=== PATIENT | female | born 1960 | race Caucasian/White ===

== ENCOUNTER → 2018-07-28 08:22 | Outpatient (CLI) | payer MEDICARE, BC ==
--- NOTE | 2018-07-30 09:13 | EC ---
PATIENT:MARIA T CARRILLO DATE OF SERVICE: 07/28/18 SEX: F MEDICAL RECORD: [id number] DATE OF : 58 LOCATION:DFORMERLY [facility] AGE OF PATIENT: 58 ADMISSION DATE: 07/28/18 REFERRING PHYSICIAN: INTERPRETING PHYSICIAN: RAINA BEAN MD ECHOCARDIOGRAM REPORT ECHO CHARGES 4 ECHO COMPLETE Date: 07/28/18 CLINICAL DIAGNOSIS: CARDIOMYOPATHY HISTORY, CAD/HTN ECHOCARDIOGRAPHIC MEASUREMENTS (adult normal given) AC root (d.<3.7cm) 3.5 cm LV Septum d (<1.2 cm> 1.5 cm Valve Excursion 1.4 cm LV Septum (systole) 1.7 cm Left Atria (s.<4.0cm> 3.9 cm LVPW d(<1.2cm) 1.4 cm RV (d.<2.3cm) 3.5 cm LVPW (sytole) 1.6 cm LV diastole(<5.6CM) 4.8 cm MV E-F(>70mm/sec) cm LV systole 3.9 cm LVOT Diameter 1.6 cm MV exc.(>10mm) 1.6 cm Est.ejection fraction (50-75%) % DOPPLER: LVIT cm/sec A 73.0 cm/sec E 71.0 cm/sec LA cm/sec RVSP 29 mmHg LVOT 90 cm/sec AOP1/2T m/s Asc. Ao 131 cm/sec RVOT 66 cm/sec RA cm/sec PA 108 cm/sec AV Gradient Peak 6.87 mmHg AV Mean 3.64 mmHg AV Area 1.3 cm MV Gradient Peak 3.90 mmHg MV Mean 1.75 mmHg MV Area cm COMMENTS: Special Education Educational Assistant: 2 FRANK CESPEDES Supervisor Functional Testing: 3 Dr. Serna TAPE# PACS Pericardial Effusion N DATE OF SERVICE: Adequate 2D echo, color flow, spectral Doppler, and M-Mode LVH is present. LV internal dimensions are normal. Wall motion is normal. EF is greater than or equal to 55%. Aortic valve is tricuspid. No evidence of stenosis by Doppler interrogation. Left atrium is normal. Mitral valve shows no prolapse. Trace MR. Right-sided chambers grossly normal. Trace TR. TRANSINT:[id number] Voice Confirmation ID: [id number] DOCUMENT ID: [id number] ECHOCARDIOGRAM REPORT [id number] LORENA,RAINA ROLAND MD at 0913 CC: [id number] DICTATION DATE: 07/29/18 1014 SYSTEM ARCHIVE ANALYST: 07/29/18 1227 DEP CLI 07/28/18 [facility] [address] [place] [address]
== END | disposition home or self-care (01) ==
LOC: D.HCCARDIO 08:22
PROVIDERS: ATTEND Internal Medicine Interventional Cardiology
DX: I42.9 Cardiomyopathy, unspecified (principal)

== ENCOUNTER 2019-09-19 07:34 | Outpatient (CLI) | payer MEDICARE, BC ==
[~2019-09-19] VITALS: Ht 152.4 cm; Wt 61.7 kg
--- NOTE | ~2019-09-19 | HEMODYNAMI ---
PATIENT:MARIA T CARRILLO MEDICAL RECORD: [id number] : 58 LOCATION:D.CAT ADMISSION DATE: 09/19/19 Generatedon:09/19/201910:13 Patient name: MARIA T CARRILLO Patient #: [id number] SSN: [id number] : 1960 Date of study: 09/19/2019 Page: Of Hemodynamic Procedure Report Patient Data Patient Demographics Procedure consent was obtained First Name: MARIA T Gender: Female Last Name: LORENA : 1960 Middle Initial: D Age: 59 year(s) Patient #: [id number] Race: SSN: [id number] Additional ID: [id number] Contact details Address: [address] [place] [address] State: [place] City: [place] Zip code: [address] Admission Admission Data Admission Date: 09/19/2019 Admission Time: 7:34 Arrival Date: 09/19/2019 Arrival Time: 9:30 Insurance Payor: Medicare [facility] #: [id number] Height (in.): 59.84 BSA: 1.57 (m2) Height (cm.): 152 BMI: 26.4 (kg/m2) Weight (lbs.): 134.48 Weight (kg.): 61 Lab Results Lab Result Date: 09/19/2019 Lab Result Time: 0:00 Biochemistry Name Units Result Min Max BUN mg/dl 16 --(---*)-- 7 18 Creatinine mg/dl 0.8 --(-*--)-- 0.6 1.3 CBC Name Units Result Min Max Hemoglobin g/dl 12.6 -*(----)-- 13.5 17.5 Procedure Procedure Types Cath Procedure Diagnostic Procedure C [facility] w/Coronaries Sedation Charges Moderate Sedation up to 15 minutes Peripheral Cath Diagnostic Procedure Stone Chimney Mason Peripheral Procedures AFRO (Diagnostic) Procedure Description Procedure Date Procedure Date: 09/19/2019 Procedure Start Time: 10:00 Procedure End Time: 10:10 Procedure Staff Name Function Chaim Pagan MD Performing Physician Tiny Quesada RT Monitor Beryl Chamorro RT Scrub [facility] RN Nurse Procedure Data Cath Procedure Fluoroscopy Diagnostic fluoroscopy Total fluoroscopy Time: 1.6 time: 1.6 min min Diagnostic fluoroscopy Total fluoroscopy dose: 296 dose: 296 mGy mGy Contrast Material Contrast Material Type Amount (ml) Isovue 300 113 Entry Location Entry Primary Successful Side Size Upsize Upsize Entry Closure Succes sful Closure Location (Fr) 1 (Fr) 2 (Fr) Remarks Device Remarks Femoral Right 5 Fr Exoseal artery Estimated blood loss: 5 ml Diagnostic catheters Device Type Used For End Catheter Placement MULTIPACK JL 4.0 5Fr Left Coronary catheter Angiography MULTIPACK 3DRC 5Fr Right Coronary catheter Angiography MULTIPACK Pigtail 5 Fr LV Angiography catheter Procedure Complications No complications Procedure Medications Medication Administration Route Dosage Oxygen etCO2 Nasal cannula 2 l/min Lidocaine 2% added to field 20 Heparin Flush Bag added to field 2 bags (1000units/500ml NS) 0.9% NaCl I.V. 100 ml/hr Versed I.V. 1 mg Fentanyl I.V. 50 mcg Versed I.V. 1 mg Fentanyl I.V. 50 mcg Hemodynamics Rest BSA: 1.57 (m2) HGB: 12.6 (g/dl) O2 Consumption: Estimated: 141.83 (ml/min) O2 Co nsumption indexed: Estimated:90.34 (ml/min/m) Heart Rate: 58 (bpm) Pressure Samples Time Site Value (mmHg) Purpose Heart Use Rate(bpm) 10:05 LV 110/10,11 Snapshot 65 Gradients Valve Time Site Site Mean SEP/DFP Peak To Heart Use 1 2 (mmHg) (sec/min) Peak Rate (mmHg) (bpm) Aortic 10:06 LV AO 73 Snapshots Pre Cath Intra NCS Post Cath Vital Signs Time Heart Resp SPO2 etCO2 NIBP (mmHg) Rhythm Pain Sedation Rate (ipm) (%) (mmHg) Status Level (bpm) 9:44:23 56 11 100 26.1 130/77(100) NSR 0 (11) 10(A) , No pain 9:48:41 56 18 100 17.9 125/70(98) NSR 0 (11) 10(A) , No pain 9:52:59 59 11 98 22.4 112/57(80) NSR 0 (11) 10(A) , No pain 9:57:17 62 15 95 0 101/59(75) NSR 0 (11) 10(A) , No pain 10:01:31 63 20 99 26.8 99/58(69) NSR 0 (11) 10(A) , No pain 10:05:41 65 15 100 33.6 107/67(79) NSR 0 (11) 10(A) , No pain 10:09:51 77 19 100 16.4 106/73(80) NSR 0 (11) 10(A) , No pain Medications Time Medication Route Dose Verified Delivered Reason Notes Eff ectiveness by by 9:46:25 Oxygen etCO2 2 Chaim Dennyie used for Nasal l/min [facility] RN procedure cannula 9:46:32 Lidocaine 2% added 20ml Chaim Chaim for local to vial [facility] anesthetic field MD GARG 9:46:39 Heparin Flush added 2 Chaim Chaim used for Bag to bags [facility] procedure (1000units/500ml field MD GARG NS) 9:46:48 0.9% NaCl I.V. 100 Chaim Baldwinie Per ml/hr [facility] RN physician 9:56:27 Versed I.V. 1 mg Chaim [address]o for [facility] RN sedation 9:56:32 Fentanyl I.V. 50 Chaim [address]ie for mcg [facility] RN sedation 10:04:36 Versed I.V. 1 mg [address]o for [facility] RN sedation 10:04:40 Fentanyl I.V. 50 Chaim Lindo for mcg [facility] RN sedation Procedure Log Time Note 9:19:01 Informed consent obtained and on chart 9:20:24 [facility]gica Brothers RN sent for patient. Start room use. 9:22:46 Arrival Date: 09/19/2019 9:30:00 AM 9:24:34 Insurance Payor : Medicare 9:24:47 Patient Height : 59.84 inches 9:24:50 Patient Weight : 134.48 lbs 9:26:28 Lab Result : BUN 16 mg/dl 9:26:28 Lab Result : Hemoglobin 12.6 g/dl 9:26:28 Lab Result : Creatinine 0.8 mg/dl 9:31:28 Procedure type changed to Cath procedure, Diagnostic procedure, LHC, LHC w/Coronaries, Sedation Charges, Moderate Sedation up to 15 minutes, Peripheral Cath Diagnostic Procedure, Stone Chimney Mason Peripheral Procedures, AFRO (Diagnostic) 9:36:05 Diagnostic Cath Status : Elective 9:36:29 Time tracking: Regular hours (M-F 7:00 - 5:00) 9:36:36 Plan of Care:Hemodynamics will remain stable., Cardiac rhythm will remain stable., Comfort level will be maintained., Respiratory function will remain adequate., Patient/ family verbilizes understanding of procedure., Procedure tolerated without complication., Recovers from procedure without complications.. 9:36:42 Patient received from Pre/Post Procedure Room to CCL 1 Alert and oriented. Tansferred to table in Supine position. 9:36:43 Warm blankets applied, and mary hugger turned on for patient comfort. 9:36:44 ECG and BP/O2 sat monitors applied to patient. 9:43:16 Baseline sample Acquired. 9:43:16 Vital chart was started 9:43:17 Baseline sample Acquired. 9:43:20 Rhythm: sinus rhythm 9:43:22 Full Disclosure recording started 9:43:30 H&P Date Dictated: 09/19/2019 H&P Addendum completed by physician on day of procedure. (MUST COMPLETE FOR ALL OUTPATIENTS), New H&P dictated by physician.. 9:43:31 Pre-procedure instructions explained to patient. 9:43:32 Pre-op teaching completed and patient verbalized understanding. 9:43:33 Family in patients room. 9:43:35 Patient NPO since Midnight. 9:43:37 Is the patient allergic to Iodine/contrast media? No. 9:43:43 Was the patient premedicated? Yes 9:43:44 Is patient on blood thinner?No 9:43:46 Patient diabetic? No. 9:43:49 Previous problem with sedation/anesthesia? No ? 9:43:51 Snore? No 9:43:52 Sleep apnea? No 9:43:53 Deviated septum? No 9:43:54 Opens mouth fully? Yes 9:43:55 Sticks out tongue? Yes 9:43:56 Airway obstruction? No ? 9:44:00 Dentures? No ? 9:46:01 Lab results completed and on chart. 9:46:08 Stress Test: no; N/A ? 9:46:25 Oxygen 2 l/min etCO2 Nasal cannula was administered by [facility] [employer] RN; used for procedure; Verbal order read back and verified. 9:46:32 Lidocaine 2% 20ml vial added to field was administered by Chaim Pagan MD; for local anesthetic; Verbal order read back and verified. 9:46:39 Heparin Flush Bag (1000units/500ml NS) 2 bags added to field was administered by Chaim Pagan MD; used for procedure; Verbal order read back and verified. 9:46:48 0.9% NaCl 100 ml/hr I.V. was administered by [facility] [employer] RN; Per physician; Verbal order read back and verified. 9:48:30 Pt is under the understanding that she will have a heart cath procedure and afro procedure today due to hear severe increase in sob, and pressure/pain in her left shoulder. States that this is new since her . Dr Martines made aware of the situation.. Called and spoke with her daughter Majo to give update, and she also was wanting to make sure as well that we would be looking at her heart and her legs. 9:48:45 Risk of Mortality: 0.1 9:48:49 Risk of blood transfusion: 1.4 9:48:54 Risk of MIKE: 0.8 9:48:58 Bilateral groins area was prepped with chlora-prep and draped in sterile fashion 9:49:00 Alarms reviewed by R. N. 9:49:00 Sharps counted by scrub and verified by R.N. 9:54:20 2) 60-89 Mildly reduced kidney function, and other findings (as for stage 1) point to kidney disease. 9:55:06 Maximum allowable contrast dose (3.7 X eGFR X 0.75)213 ml. 9:55:19 Sedation plan: IV Moderate Sedation Medication:Versed, Fentanyl 9:55:31 Use device set Femoral Dx 9:55:32 ACIST Syringe (14498) opened to sterile field. 9:55:32 Bag Decanter () opened to sterile field. 9:55:32 Medline Cath Pack ([id number]) opened to sterile field. 9:55:34 ACIST Hand Control (20901) opened to sterile field. 9:55:34 ACIST Manifold (36307) opened to sterile field. 9:55:34 DIAGNOSTIC Multipack 5Fr catheter set (MS0129) opened to sterile field. 9:55:35 Tegaderm 4 x 4 (1626W) opened to sterile field. 9:55:36 SHEATH 5FR [place] (NBH589) opened to sterile field. 9:55:37 EMERALD Guide Wire (731-757) opened to sterile field. 9:56:27 Versed 1 mg I.V. was administered by Belgica Brothers RN; for sedation; Verbal order read back and verified. 9:56:32 Fentanyl 50 mcg I.V. was administered by [facility] [employer] RN; for sedation; Verbal order read back and verified. 9:59:21 Physician arrived 9:59:21 --------ALL STOP TIME OUT------ 9:59:22 Final Timeout: patient, procedure, and site verified with staff and physician. All members of the team are in agreement. 9:59:24 Bilateral groins site verified by team. 9:59:29 Fire Safety Assessment: A--An alcohol-based skin anteseptic being used preoperatively., C--Open oxygen or nitrous oxide is being used., D--An ESU, laser, or fiber-optic light is being used. 9:59:33 Physical assessment completed. ASA score P 2 - A patient with mild systemic disease as per Chaim Pagan MD. 9:59:37 Procedure started. 10:00:55 Local anesthetic to right femoral artery with Lidocaine 2% by Chaim Pagan MD.INITIAL ACCESS ONLY 10:01:03 A 5 Fr sheath was inserted into the Right Femoral artery 10:01:57 A MULTIPACK JL 4.0 5Fr catheter was advanced over the wire and used for Left Coronary Angiography. 10:02:33 LCA angiography performed. 10:02:36 Injector settings: Ml/sec: 3, Volume: 6, 10:03:26 Catheter removed. 10:03:32 A MULTIPACK 3DRC 5Fr catheter was advanced over the wire and used for Right Coronary Angiography. 10:04:36 Versed 1 mg I.V. was administered by Belgica Brothers RN; for sedation; Verbal order read back and verified. 10:04:40 Fentanyl 50 mcg I.V. was administered by Belgica Brothers RN; for sedation; Verbal order read back and verified. 10:04:47 RCA angiography performed. 10:04:50 Injector settings: Ml/sec: 3, Volume: 6, 10:04:52 Catheter removed. 10:04:54 ACCDominant side:Left 10:05:01 A MULTIPACK Pigtail 5 Fr catheter was advanced over the wire and used for LV Angiography. 10:05:49 LV hemodynamics recorded. 10:05:50 LV gram done using MEDINA 10:05:52 Injector settings: Ml/sec: 5, Volume: 15, 10:06:04 EF : 30 % 10:06:15 Abdominal angiogram w/ runoff was performed. 10:06:24 Injector settings: Ml/sec: 10, Volume: 20, 10:08:31 Catheter removed. 10:08:38 Sheath removed intact; hemostasis achieved with Exoseal to the Right Femoral artery. 10:08:41 EXOSEAL 5Fr (EX500) opened to sterile field. 10:08:43 Procedure ended.(Physican Out) 10:09:17 Fluoroscopy time 01.60 minutes. 10:09:22 Fluoroscopy dose: 296 mGy 10:09:22 Flurop Dose total: 296 10:09:30 Dose Area Product 50644 mGy/cm. 10:09:34 Contrast amount:Isovue 300 113ml. 10:09:36 Maximum allowable dose exceeded? No. 10:09:38 Sharps counted by scrub and verified by R.N. 10:09:40 Insertion/operative site no bleeding no hematoma. 10:09:42 Post-op/insertion site Right Femoral artery dressed using a 4 x 4 and Tegaderm. 10:09:44 Post Procedure Pulses reassessed and unchanged 10:09:47 Post procedure rhythm: unchanged. 10:09:49 Estimated blood loss: 5 ml 10:09:51 Post procedure instruction explained to patient.Patient verbalizes understanding. 10:09:52 Patient needs reinforcement of post procedure teaching. 10:09:53 Procedure and supply charges have been captured, reviewed, submitted and are correct. 10:09:57 Procedure Complication : No complications 10:09:59 Vital chart was stopped 10:10:02 [facility] Findings: mild to moderate CAD (<70%) 10:10:04 Operative report dictated upon procedure completion. 10:10:04 See physician's report for complete and final results. 10:10:05 Report given to Pre/Post Procedure Room. 10:10:08 Procedure ended. 10:10:08 Full Disclosure recording stopped 10:10:12 End room use (Document Last) Device Usage Item Name Manufacture Quantity Catalog Hospital Part Current Minimal L ot# / Number Charge Number Stock Stock Serial# Code ACIST Acist 1 71132 547174 619281 [id number] 20 Syringe Medical (97666) Systems Inc Bag Microtek 1 759631 61205 084347 5 Decanter Medical Inc. () Medline Medline 1 [id number] 750863 48951 451837 5 Cath Pack ([id number]) ACIST Hand Acist 1 73104 945902 565831 806257 5 Control Medical (43630) Systems Inc ACIST Acist 1 98606 062237 555420 690523 5 Manifold Medical (07455) Systems Inc DIAGNOSTIC Cardinal 1 [id number] 214629 47598 935215 30 Multipack Health 5Fr catheter set (EL5516) Tegaderm 4 3M 1 1626W 982084 925696 947107 5 x 4 (1626W) SHEATH 5FR Terumo 1 AVP207 284598 433388 039621 5 [place] (HSJ359) EMERALD Cardinal 1 502-455 392987 012113 907448 5 Guide Wire Health (502-455) MULTIPACK Cardinal 1 220862 5 JL 4.0 5Fr Health catheter MULTIPACK Cardinal 1 684173 5 3DRC 5Fr Health catheter MULTIPACK Cardinal 1 504736 5 Pigtail 5 Health Fr catheter EXOSEAL 5Fr Cardinal 1 EX500 827414 360003 189412 10 (EX500) Health Signature Audit [place] Stage Time Signature Unsigned Intra-Procedure 09/19/2019 Tiny Quesada 10:11:08 AM RT(R) Intra-Procedure 09/19/2019 Belgica Brothers RN 10:11:40 AM Intra-Procedure 09/19/2019 Chaim Serrano 10:13:22 AM Ravin GARG [facility] [address] [place] [address]
[2019-09-19] MEDS ORDERED: KLONOPIN0.5 MG PO (08:12)
[2019-09-19] MEDS ORDERED: DEPAKOTE500 MG PO (08:12)
[2019-09-19] MEDS ORDERED: LIPITOR40 MG PO (08:13)
[2019-09-19] MEDS ORDERED: K-TAB10 MEQ PO (08:13)
[2019-09-19] MEDS ORDERED: OMEPRAZOLE40 MG PO (08:13)
[2019-09-19] MEDS ORDERED: FOLBIC RF TABL1 EACH PO (08:15)
[2019-09-19] MEDS ORDERED: BAYER CHEWABLE81 MG PO (08:15)
[2019-09-19] MEDS ORDERED: CALCIUM 600 +1 EAC3 PO (08:16)
[2019-09-19 08:36] VITALS: BP 123/65; Ht 152.4 cm; Wt 61.7 kg
[2019-09-19 08:45] LABS: BASOPHILS 0.4 % (0-2); EOSINOPHILS 1.3 % (0-7); HEMATOCRIT 38.3 % (36.0-48.0); HEMOGLOBIN 12.6 g/dL (12-16); IMMATURE GRANULOCYTES 0.1 % (0-5); LYMPHOCYTES 65.2 % (15-50); MCH 31.1 pg (26.0-34.0); MCHC 32.9 g/dL (31.0-37.0); MCV 94.6 fL (80.0-100.0); MEAN PLATELET VOLUME 10.4 fL (7.4-10.4); MONOCYTES 7.8 % (2-11); NEUTROPHILS 25.2 % (40-80); PLATELET COUNT 212 10x3/uL (130-400); RBC 4.05 10x6/uL (4.00-5.40); RDW 12.7 % (11.5-14.5); WBC 9.9 10x3/uL (4.8-10.8)
[2019-09-19 09:04] LABS: ALT (SGPT) 25 U/L (10-68); CALC OSMOLALITY 278 mosm/kg (275-300); CALCIUM 9.8 mg/dL (8.5-10.1); CARBON DIOXIDE 27.1 mmol/L (21.0-32.0); CHLORIDE - SERUM 107 mmol/L (98-107); CHOL - HDL RATIO 2.6 ratio (2.3-4.1); CHOLESTEROL, TOTAL 148 mg/dL (0-200); CREATININE - SERUM 0.8 mg/dL (0.6-1.3); GLUCOSE 83 mg/dL (74-106); HDL CHOLESTEROL 57 mg/dL (32-96); LDL CHOLESTEROL 74 mg/dL (0-100); LDL-HDL RATIO 1.3 ratio (1.5-3.5); POTASSIUM - SERUM 4.4 mmol/L (3.5-5.1); SODIUM 140 mmol/L (136-145); TRIGLYCERIDE 85 mg/dL (30-200); UREA NITROGEN 16 mg/dL (7-18); eGFR NON AFRICAN AMERICAN 77 mL/min (90-120)
--- NOTE | 2019-09-19 10:24 | NUR ---
PT REC'D TO ROOM 4 VIA STRETCHER FROM ENVIRONMENTAL ISSUES INSTRUCTOR. MONITORS ESTAB. PT DROWSY. SEE TALEND DEVELOPER. ALARMS ON AND C/L IN REACH.
--- NOTE | 2019-09-19 10:40 | NUR ---
PT RESTING QUIETLY, VSS. HR 57 B/P 123/54 R GROIN SITE C/D/I, NO S/S BLEEDING OR SWELLING. R LEG/FOOT WARM WITH EASILY PALPATED PULSES AND BRISK CAP REFILL. ALARMS ON AND C/L IN REACH.
--- NOTE | 2019-09-19 11:10 | NUR ---
R GROIN SITE SOFT, NO S/S BLEEDING OR HEMATOMA. VSS. PT DENIES NEEDS, ALARMS ON AND C/L IN REACH.
--- NOTE | 2019-09-19 11:25 | NUR ---
R GROIN SITE SOFT, C/D/I. PT ON BEDPAN - VOIDED 250ML YELLOW URINE. FRANCHESCA-CARE PROVIDED.
--- NOTE | 2019-09-19 11:30 | NUR ---
HOB ELEVATED - COLA AND SNACKS PROVIDED PER PT REQUEST. VSS. R GROIN SITE C/D/I. ALARMS ON AND C/L IN REACH.
[2019-09-19] MEDS ORDERED: LANOXIN125 MCG PO (11:41)
[2019-09-19] MEDS ORDERED: ALDACTONE25 MG PO (11:41)
--- NOTE | 2019-09-19 11:45 | NUR ---
SPOKE WITH DAUGHTER, D/C INSTRUCTIONS REVIEWED AND PLAN FOR D/C HOME AT 1215. R GROIN SITE YOSSI, C/D/I.
--- NOTE | 2019-09-19 12:15 | NUR ---
R GROIN SITE SOFT, C/D/I. PIV D/C'D INTACT, DSG APPLIED. PT ALLOWED UP TO GET DRESSED.
--- NOTE | 2019-09-19 12:20 | NUR ---
ALL DISCHARGE INSTRUCTIONS REVIEWED WITH PT, INCLUDING RESTRICTIONS, NEW MEDICATIONS AND FOLLOW UP APPT.
--- NOTE | 2019-09-19 12:30 | NUR ---
PT READY TO DC. WAITING FOR DAUGHTER.
--- NOTE | 2019-09-19 12:45 | NUR ---
PT D/C'D VIA WC TO PRIVATE VEHICLE - DAUGHTER VERBALIZES UNDERSTANDING OF D/C INSTRUCTIONS. PT HAS ALL PAPER WORK AND BELONGINGS.
--- NOTE | 2019-09-20 08:17 | HP ---
PATIENT: MARIA T CARRILLO MEDICAL RECORD: [id number] ACCOUNT: [id number] LOCATION:VINCENT : 58 ADMISSION DATE: 09/19/19 PCP: EVA MOYA HISTORY AND PHYSICAL EXAMINATION ADDENDUM I was called to the recovery room, the patient is complaining of chest pain. She has been having off and on for the past 2 weeks by both daughter and patient's report, daughter reported markedly progressive. She denies known disease with a previous inferior myocardial infarction, multiple risk factors. At this point in time we will plan for angiography, at the same time AFRO. TRANSINT:[id number] Voice Confirmation ID: [id number] DOCUMENT ID: [id number] RAINA BEAN MD at 0817 CC: [id number] DICTATION DATE: 09/19/19 0932 CARDIAC SURGEON: 09/19/19 1256 DEP CLI 09/19/19 [id number] [place] [address]
--- NOTE | 2019-09-20 08:17 | HP ---
PATIENT: MARIA T CARRILLO MEDICAL RECORD: [id number] ACCOUNT: [id number] LOCATION:VINCENT : 58 ADMISSION DATE: 09/19/19 PCP: EVA MOYA HISTORY AND PHYSICAL EXAMINATION HISTORY OF PRESENT ILLNESS: This is a 59-year-old female with a history of coronary artery disease, ischemic cardiomyopathy, EF baseline about 40%, class II-III symptomatology. This was followed initially at [facility], noted to have abnormal ABIs and claudication. She attempted medical therapy as well as exercise; however, claudications worsened, being brought for aortofemoral runoff, possible intervention. PAST MEDICAL HISTORY: Includes: 1. History of hypertension. 2. Hyperlipidemia. 3. Coronary artery disease, status post intervention. 4. Peripheral vascular disease. SOCIAL HISTORY: Nonsmoker, nondrinker, has had more anxiety as of late secondary to passing of her recently. PHYSICAL EXAMINATION: GENERAL: Pleasant, in no acute distress. HEENT: Normocephalic, atraumatic. NECK: No bruits. HEART: Regular, II/ systolic ejection murmur. LUNGS: Good air excursion. ABDOMEN: Soft, nontender. EXTREMITIES: Pulses are decreased 1/2 plus. IMPRESSION: Claudication with positive noninvasive study. He is planned for lower extremity arterial runoff. Intervention based on above. TRANSINT:[id number] Voice Confirmation ID: [id number] DOCUMENT ID: [id number] RAINA BEAN MD at 0817 CC: [id number] DICTATION DATE: 09/19/19 0842 SPINE NURSE: 09/19/19 1216 DEP CLI 09/19/19 [id number] [place] [address]
--- NOTE | 2019-09-20 08:17 | OP ---
PATIENT NAME: MARIA T CARRILLO MEDICAL RECORD: [id number] :58 LOCATION:D.CAT ADMISSION DATE: SURGEON: RAINA BEAN MD DATE OF OPERATION: 09/19/2019 PROCEDURE: Left heart catheterization, selective coronary angiography, plus aortofemoral runoff, right femoral artery approach. CATHETERS: A 5-Romanian sheath, 5/4 left and right Delfina, 5/4 pig. The procedure was well tolerated. The patient returned to duncan, sheath removed. ExoSeal device placed. FINDINGS: Left ventriculography 30-degree MEDINA view shows global hypokinesis with reduced EF, estimated EF 30%. CORONARY ANATOMY: LEFT MAIN: Left main is free of disease. LAD: Has mild luminal irregularities with no functional disease. CIRCUMFLEX: Left dominant system. Previously placed stent is widely patent, minimal luminal irregularities, otherwise. No evidence of restenosis. RIGHT CORONARY ARTERY: Rudimentary but significant disease. The pigtail catheter was withdrawn to the abdominal aorta at the area of the renal arteries and aortofemoral runoff was performed. Aorta shows minimal atherosclerosis buildup. No evidence of dissection. No evidence of aneurysm. RIGHT ILIAC SYSTEM: Right iliac, internal and external shows mild wall disease, but no flow obstructive stenosis. The right femoral system including common, superficial and deep, mild calcified granado, but no significant stenosis with good 3-vessel runoff. LEFT SYSTEM: Left iliac system, this including common, internal and external smooth-walled with no significant stenosis. The left femoral system including deep common superficial, mild wall disease again, but no significant stenosis and good 3-vessel runoff. IMPRESSION: Cardiomyopathy. Certainly in excess of ischemic burden for medical therapy. We will need an echocardiograph study post multiple medical therapy to see if a device therapy indicated or required. TRANSINT:[id number] Voice Confirmation ID: [id number] DOCUMENT ID: [id number] RAINA BEAN MD at 0817 CC: [id number] DICTATION DATE: 09/19/19 1026 REGISTERED DIETICIAN: 09/19/192135 DEP CLI 09/19/19 [facility] [address] [place] [address]
== END 2019-09-19 12:45 | disposition home or self-care (01) ==
LOC: D.CATH 07:34
PROVIDERS: ATTEND Internal Medicine Interventional Cardiology
DX: I70.213 Atherosclerosis of native arteries of extremities with intermittent claudication, bilateral legs (principal); I25.10 Atherosclerotic heart disease of native coronary artery without angina pectoris; I25.5 Ischemic cardiomyopathy; I10 Essential (primary) hypertension; E78.5 Hyperlipidemia, unspecified

== ENCOUNTER → 2019-11-05 09:17 | Outpatient (CLI) | payer MEDICARE, BC ==
[2019-09-19 08:36] VITALS: BMI 26.5
--- NOTE | ~2019-11-05 | EC ---
PATIENT:MARIA T CARRILLO DATE OF SERVICE: 11/05/19 SEX: F MEDICAL RECORD: [id number] DATE OF : 58 LOCATION:[facility] AGE OF PATIENT: 59 ADMISSION DATE: 11/05/19 REFERRING PHYSICIAN: INTERPRETING PHYSICIAN: RAINA BEAN MD ECHOCARDIOGRAM REPORT ECHO CHARGES 4 ECHO COMPLETE Date: 11/05/19 CLINICAL DIAGNOSIS: CAD/ISCHEMIC CARDIOMYOPATHY /ASSESS EF AND MR ECHOCARDIOGRAPHIC MEASUREMENTS (adult normal given) AC root (d.<3.7cm) 3.1 cm LV Septum d (<1.2 cm> 1.0 cm Valve Excursion 1.5 cm LV Septum (systole) 1.3 cm Left Atria (s.<4.0cm> 3.8 cm LVPW d(<1.2cm) 1.2 cm RV (d.<2.3cm) 2.6 cm LVPW (sytole) 1.4 cm LV diastole(<5.6CM) 5.5 cm MV E-F(>70mm/sec) cm LV systole 4.1 cm LVOT Diameter 1.5 cm MV exc.(>10mm) 1.4 cm Est.ejection fraction (50-75%) % DOPPLER: LVIT cm/sec A 69.0 cm/sec E 48.0 cm/sec LA cm/sec RVSP 30 mmHg LVOT 87 cm/sec AOP1/2T m/s Asc. Ao 142 cm/sec RVOT 66 cm/sec RA cm/sec PA 108 cm/sec AV Gradient Peak 8.10 mmHg AV Mean 4.19 mmHg AV Area 1.5 cm MV Gradient Peak 2.74 mmHg MV Mean 0.71 mmHg MV Area cm COMMENTS: Eligibility Consultant: 2 FRANK CESPEDES Meeting Manager: 3 Dr. Serna TAPE# PACS Pericardial Effusion Y DATE OF SERVICE: Adequate 2D, color flow imaging, spectral Doppler, and M-Mode. No LVH. LV internal dimensions are normal. LV appears to be very mildly globally hypo with EF at lower limits of normal, mildly reduced EF of 45% to 50%. Aortic valve is tricuspid. No evidence of stenosis by Doppler interrogation. Left atrium normal at 3.0 cm. Mitral valve shows no prolapse and mild MR. Right-sided chambers are grossly normal. Mild TR. Please note interval improvement in LV function from approximately 30% to close to normal. ECHOCARDIOGRAM REPORT [id number] MARIA T CARRILLO TRANSINT:[id number] Voice Confirmation ID: [id number] DOCUMENT ID: [id number] RAINA BEAN MD CC: [id number] DICTATION DATE: 11/06/19 1549 SHOWER SCREEN INSTALLER: 11/06/19 2156 DEP CLI 11/05/19 [place] [address] [id number]
[~2019-11-05 09:17] MED LIST: ALDACTONE25 MG PO; BAYER CHEWABLE81 MG PO; CALCIUM 600 +1 EAC3 PO; DEPAKOTE500 MG PO; FOLBIC RF TABL1 EACH PO; K-TAB10 MEQ PO; KLONOPIN0.5 MG PO; LANOXIN125 MCG PO; LIPITOR40 MG PO; OMEPRAZOLE40 MG PO
== END | disposition home or self-care (01) ==
LOC: D.HCCECHO 09:17
PROVIDERS: ATTEND Internal Medicine Interventional Cardiology
DX: I25.10 Atherosclerotic heart disease of native coronary artery without angina pectoris (principal)